=== PATIENT | female | born 1965 ===

== ENCOUNTER 2018-01-20 22:59 | Emergency (ER) | payer OTHER ==
[2018-01-20] MEDS ORDERED: HYDROcodone/Acetaminophen 10/325 mg Tablet ONE (23:35)
[2018-01-20] MEDS ORDERED: Ibuprofen 800 MG TAB ONE (23:35)
--- NOTE | 2018-01-21 00:08 | RAD ---
CHEST TWO VIEWS: 01/20/18 No fracture was appreciated, though not all bones were seen optimally. It is difficult to evaluate th e patient's sternum on the lateral view. If there were sternal pain, then other studies would be need ed. The heart size is normal. The mediastinum shows no widening or shift. The slight haziness to the lungs is mostly due to the overlying soft tissues. No lobar consolidations were seen. At most, there might be a little linear streaking in the right base, but this is equivocal. IMPRESSION: No definite acute findings. Note: If sternal pain is present, then a CT would probably be needed to evaluate it. Code T POS: HOME
--- NOTE | 2018-01-21 00:09 | RAD ---
RIGHT ELBOW FOUR VIEWS: 01/20/18 No fracture, dislocation, or joint effusion was seen. All bones appeared intact. IMPRESSION: No acute findings. POS: HOME
== END 2018-01-20 23:47 ==
LOC: BURERS 22:59
DX: S40.011A Contusion of right shoulder, initial encounter (principal); S80.11XA Contusion of right lower leg, initial encounter; S50.01XA Contusion of right elbow, initial encounter; S20.211A Contusion of right front wall of thorax, initial encounter; E11.9 Type 2 diabetes mellitus without complications; I10 Essential (primary) hypertension; Z79.84 Long term (current) use of oral hypoglycemic drugs; Z79.899 Other long term (current) drug therapy; W10.9XXA Fall (on) (from) unspecified stairs and steps, initial encounter
CPT/HCPCS: 71046